=== PATIENT | female | born 1980 | race Caucasian/White ===

== ENCOUNTER → 2016-11-30 | Outpatient (CLI) | payer BC, OTHER | LOC: MW.CHOBGYN 11:05 | PROVIDERS: ATTEND Nurse Practitioner Women's Health | DX: N92.1 Excessive and frequent menstruation with irregular cycle (principal); Z97.5 Presence of (intrauterine) contraceptive device | CPT/HCPCS: 36415; 84443; 84703 ==

== ENCOUNTER → 2016-12-01 | Outpatient (CLI) | payer BC, OTHER ==
--- NOTE | 2016-12-03 14:59 | US ---
EXAM DATE: 12/01/16 PATIENT'S AGE: 36 Patient: FOX NATH Facility: [facility] Site . Site : 1980 Study: US-Pelvis [id number]/2/2017 5:39:18 PM Ordering Physician: Tricia Guerrero Final Report: HISTORY: Excessive and frequent menstruation with irregular cycle. IUD. Technique: Transvaginal pelvic ultrasound. Findings: The uterus measures 7.1 x 5.4 x 4.1 cm in size. There is an IUD present within the lower uterine segment and upper endocervical region. This represents a low position of the IUD. The endometrial echo complex is segmentally seen and where visualized measures 4 mm. No uterine mass appreciated. . The right ovary measures 2.3 x 2.3 x 3.8 cm in size. There are multiple right ovarian follicles. Blood flow is detected within the right ovary without findings of torsion. Left ovary measures 3 x 1.5 x 3.7 cm in size. Small follicles within the left ovary. Left ovary is difficult to evaluate given its deep location. It is difficult to confirm blood flow within the left ovary though this may be technical in nature. No significant pelvic free fluid seen. Impression: 1. Somewhat low position of the IUD which is present within the lower uterine segment and upper endocervical region. 2. The endometrial echo complex is segmentally seen and where visualized is of normal thickness. 3. No ovarian or adnexal mass. Dictated by Kana Lee MD @ Dec 02 2016 2:00PM Signed by: Kana Lee MD @12/02/2016 4:22:28 PM (Electronic Signature) Report Signed by Proxy. [facility] K[facility]TER[facility] CANCER CENTERBeatrice
== END ==
LOC: MW.US 15:23
PROVIDERS: ATTEND Nurse Practitioner Women's Health
DX: N92.1 Excessive and frequent menstruation with irregular cycle (principal); Z97.5 Presence of (intrauterine) contraceptive device
CPT/HCPCS: 76830; 76830-26

== ENCOUNTER 2017-02-16 04:58 | Emergency (ER) | payer BC ==
--- NOTE | 2017-02-16 05:24 | EDM.PDOC ---
ED HPI GENERAL MEDICAL PROBLEM - General Stated Complaint: MIGRAINE/HEAD PAIN Time Seen by Provider: 02/16/17 05:03 Source of Information: Reports: EMS History Limitations: Reports: No Limitations - History of Present Illness INITIAL COMMENTS - FREE TEXT/NARRATIVE: History of present illness: []Patient has a history of migraines and started having a typical migraine last night. He used her Imitrex out any relief. She is nauseated but has not had any vomiting. She'll suggest denies any fevers or chills. Review of systems: As per history of present illness and below otherwise all systems reviewed and negative. Past medical history: As per history of present illness and as reviewed below otherwise noncontributory. Surgical history: As per history of present illness and as reviewed below otherwise noncontributory. Social history: No reported history of drug or alcohol abuse. Family history: As per history of present illness and as reviewed below otherwise noncontributory. Physical exam: General: Well developed, well nourished in NAD HEENT: Atraumatic, normocephalic, pupils reactive, negative for conjunctival pallor or scleral icterus, mucous membranes moist, throat clear, neck supple, nontender, trachea midline. Lungs: Clear to auscultation, breath sounds equal bilaterally, chest nontender. Heart: S1S2, regular, negative for clicks, rubs, or JVD. Abdomen: Soft, nondistended, nontender. Negative for masses or hepatosplenomegaly. Negative for costovertebral tenderness. Pelvis: Stable nontender. Genitourinary: Deferred. Rectal: Deferred. Extremities: Atraumatic, negative for cords or calf pain. Neurovascular unremarkable. Neuro: Awake, alert, oriented. Cranial nerves II through XII unremarkable. Cerebellum unremarkable. Motor and sensory unremarkable throughout. Exam nonfocal. Diagnostics: [] Therapeutics: []Toradol Zofran given with complete alleviation of her headache Impression: []Typical migraine headache Plan: []Imitrex refill use as directed follow-up with PMD return if symptoms worsen Definitive disposition and diagnosis as appropriate pending reevaluation and review of above. Left Head Pain Score (Numeric/FACES): 9 - Related Data Allergies Allergy/AdvReac Type Severity Reaction Status Date / Time No Known Allergies Allergy Verified 02/16/17 05:20 Home Meds: Home Meds SUMAtriptan [Imitrex] 50 mg PO DAILY PRN 06/09/16 [History] valACYclovir HCl [Valtrex] 500 mg PO DAILY 06/09/16 [History] SUMAtriptan Succinate [Imitrex] 100 mg PO ASDIRECTED PRN #8 tablet 02/16/17 [Rx] Past Medical History [employer] History: Reports: Neurological History: Reports: Migraines Social & Family History - Family History Family Medical History: Noncontributory - Tobacco Use Smoking Status *Q: Never Smoker Second Hand Smoke Exposure: No - Caffeine Use Caffeine Use: Reports: Coffee - Recreational Drug Use Recreational Drug Use: No Review of Systems - Review of Systems Review Of Systems: See Below (See history of present illness) ED EXAM, GENERAL - Physical Exam Exam: See Below (See history of present illness) Course - Vital Signs Last Recorded V/S: Last Vital Signs Temp 36.3 C 02/16/17 05:21 Pulse 104 H 02/16/17 05:21 Resp 17 02/16/17 05:21 BP 133/87 02/16/17 05:21 Pulse Ox 96 02/16/17 05:21 - Orders/Labs/Meds Meds: Medications Discontinued Medications Generic Name Dose Route Start Last Admin Trade Name Freq PRN Reason Stop Dose Admin Ketorolac Tromethamine 60 mg 02/16/17 05:25 02/16/17 05:36 Toradol IM 02/16/17 05:26 60 mg ONETIME ONE Administration Ondansetron HCl 4 mg 02/16/17 05:26 02/16/17 05:35 Zofran Odt PO 02/16/17 05:27 4 mg ONETIME ONE Administration Departure - Departure Time of Disposition: 06:34 Disposition: Home, Self-Care 01 Condition: Good Clinical Impression: Migraine Qualifiers: Migraine type: unspecified Status migrainosus presence: without status migrainosus Intractability: not intractable Qualified Code(s): G43.909 - Migraine, unspecified, not intractable, without status migrainosus - Discharge Information Prescriptions: SUMAtriptan Succinate [Imitrex] 100 mg PO ASDIRECTED PRN #8 tablet PRN Reason: Pain Additional Instructions: The following information is given to patients seen in the emergency department who are being discharged to home. This information is to outline your options for follow-up care. We provide all patients seen in our emergency department with a follow-up referral. The need for follow-up, as well as the timing and circumstances, are variable depending upon the specifics of your emergency department visit. If you don't have a primary care physician on staff, we will provide you with a referral. We always advise you to contact your personal physician following an emergency department visit to inform them of the circumstance of the visit and for follow-up with them and/or the need for any referrals to a consulting specialist. The emergency department will also refer you to a specialist when appropriate. This referral assures that you have the opportunity for follow-up care with a specialist. All of these measure are taken in an effort to provide you with optimal care, which includes your follow-up. Under all circumstances we always encourage you to contact your private physician who remains a resource for coordinating your care. When calling for follow-up care, please make the office aware that this follow-up is from your recent emergency room visit. If for any reason you are refused follow-up, please contact the [facility] at and asked to speak to the emergency department charge nurse. Use Imitrex as directed [facility] [address] [place] [id number]
[2017-02-16] MEDS ORDERED: Ketorolac 60 MG/2 ML SDV IM ONE (05:25)
[2017-02-16] MEDS ORDERED: Ondansetron 4 MG Tab.DIS PO ONE (05:26)
[2017-02-16 07:02] VITALS: BP 120/80
== END 2017-02-16 07:03 | disposition home or self-care (01) ==
LOC: MW.ED 04:58
DX: G43.909 Migraine, unspecified, not intractable, without status migrainosus (principal); Z79.899 Other long term (current) drug therapy
CPT/HCPCS: 96372; 99283; A9270; J1885

== ENCOUNTER 2018-04-16 03:38 | Emergency (ER) | payer BC ==
--- NOTE | 2018-04-16 03:50 | EDM.PDOC ---
ED HPI GENERAL MEDICAL PROBLEM - General Chief Complaint: Headache Stated Complaint: MIGRAINE Time Seen by Provider: 04/16/18 03:42 - History of Present Illness INITIAL COMMENTS - FREE TEXT/NARRATIVE: HISTORY AND PHYSICAL: History of present illness: The patient is a 37-year-old female who has a long-standing history of migraine headaches and has been seen here in the emergency department for same and presents this morning with complaints of a migraine that has been on and off over the last several days and she has been treating at home with her Imitrex. She took her last dose of Imitrex yesterday and feels that it's worsened and she has no more medication so she is here for evaluation. The patient says that she gets migraines usually around her menstrual cycle and she is currently menstruating. She has no recent trauma to her head and neck and her headache is located in the frontal area of her head typical of her usual migraines. There is some photophobia associated with it and nausea but no vomiting or diarrhea. She's had no fevers chills upper respiratory symptoms chest pain or shortness of breath. Nothing new or different about her headaches with location character or timing and she also says that as the eugenio starts she has more frequency of headaches. The patient was last seen here January 2017 and says that the cocktail of medications she was given alleviated her headache significantly and she would like similar today. Review of systems: As per history of present illness and below otherwise all systems reviewed and negative. Past medical history: As per history of present illness and as reviewed below otherwise noncontributory. Surgical history: As per history of present illness and as reviewed below otherwise noncontributory. Social history: No reported history of drug or alcohol abuse. Family history: As per history of present illness and as reviewed below otherwise noncontributory. Physical exam: General: Well developed well-nourished female who is nontoxic and ambulatory into the ED and vital signs are noted by me HEENT: Atraumatic, normocephalic, pupils reactive and the patient does exhibit photophobia, negative for conjunctival pallor or scleral icterus, mucous membranes moist, throat clear, neck supple, nontender, trachea midline. There is no cervical adenopathy or nuchal rigidity Lungs: Clear to auscultation, breath sounds equal bilaterally, chest nontender. Heart: S1S2, regular rate and rhythm no overt murmurs Abdomen: Soft, nondistended, nontender. NABS Pelvis: Deferred Genitourinary: Deferred. Rectal: Deferred. Extremities: Atraumatic, full range of motion without defects or deficits Neurovascular unremarkable. Neuro: Awake, alert, oriented. Cranial nerves II through XII unremarkable. Cerebellum unremarkable. Motor and sensory unremarkable throughout. Exam nonfocal. Diagnostics: Therapeutics: IV fluids Toradol Zofran Solu-Medrol Ativan Patient states that she can get a refill for her Imitrex tomorrow morning and does not need a prescription from me. 0502:Patient is feeling better; we will plan discharge Impression: Migraine headache with history of same Definitive disposition and diagnosis as appropriate pending reevaluation and review of above. headache Pain Score (Numeric/FACES): 8 - Related Data Allergies Allergy/AdvReac Type Severity Reaction Status Date / Time Latex, Natural Rubber Allergy Rash Verified 02/16/17 06:35 antibiotic Allergy Hives Uncoded 04/16/18 03:51 Home Meds: Home Meds valACYclovir HCl [Valtrex] 500 mg PO DAILY 06/09/16 [History] SUMAtriptan Succinate [Imitrex] 100 mg PO ASDIRECTED PRN 04/16/18 [History] metFORMIN [Glucophage XR] 500 mg PO TID 04/16/18 [History] Past Medical History HEENT History: Reports: None Cardiovascular History: Reports: None Respiratory History: Reports: None Gastrointestinal History: Reports: None Genitourinary History: Reports: None 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: Musculoskeletal History: Reports: None Neurological History: Reports: Migraines Psychiatric History: Reports: None Endocrine/Metabolic History: Reports: None Hematologic History: Reports: None Immunologic History: Reports: None Dermatologic History: Reports: Other (See Below) Other Dermatologic History: Tumor removal to leg & jaw - Infectious Disease History Infectious Disease History: Reports: Chicken Pox - Past Surgical History Head Surgeries/Procedures: Reports: None GI Surgical History: Reports: Other (See Below) Other GI Surgeries/Procedures: Gastric Bypass Social & Family History - Family History Family Medical History: Noncontributory - Caffeine Use Caffeine Use: Reports: Coffee ED ROS GENERAL - Review of Systems Review Of Systems: ROS reveals no pertinent complaints other than HPI. ED EXAM, GENERAL - Physical Exam Exam: See Below (see dictation) Course - Vital Signs Last Recorded V/S: Last Vital Signs Temp 35.6 C 04/16/18 03:44 Pulse 77 04/16/18 03:44 Resp 18 04/16/18 03:44 BP 148/99 H 04/16/18 03:44 Pulse Ox 98 04/16/18 03:44 - Orders/Labs/Meds Orders: Active Orders 24 hr Category Date Time Status Sodium Chloride 0.9% [Saline Flush] Med 04/16/18 03:59 Active 10 ml FLUSH ASDIRECTED PRN Sodium Chloride 0.9% [Saline Flush] Med 04/16/18 03:59 Active 2.5 ml FLUSH ASDIRECTED PRN Saline Lock Insert [OM.PC] Stat Oth 04/16/18 03:59 Ordered Medication Orders Sodium Chloride (Saline Flush) 10 ml FLUSH ASDIRECTED PRN PRN Reason: Keep Vein Open Sodium Chloride (Saline Flush) 2.5 ml FLUSH ASDIRECTED PRN PRN Reason: Keep Vein Open Meds: Medications Generic Name Dose Route Start Last Admin Trade Name Freq PRN Reason Stop Dose Admin Sodium Chloride 10 ml 04/16/18 03:59 Saline Flush FLUSH ASDIRECTED PRN Keep Vein Open Sodium Chloride 2.5 ml 04/16/18 03:59 Saline Flush FLUSH ASDIRECTED PRN Keep Vein Open Discontinued Medications Generic Name Dose Route Start Last Admin Trade Name Freq PRN Reason Stop Dose Admin Sodium Chloride 1,000 mls @ 999 mls/hr 04/16/18 03:59 04/16/18 04:14 Normal Saline IV 04/16/18 04:59 999 mls/hr STAT ONE Administration Ketorolac Tromethamine 30 mg 04/16/18 03:59 04/16/18 04:14 Toradol IVPUSH 04/16/18 04:00 30 mg ONETIME ONE Administration Lorazepam 1 mg 04/16/18 03:59 04/16/18 04:14 Ativan IVPUSH 04/16/18 04:00 1 mg ONETIME ONE Administration Methylprednisolone Sodium Succinate 125 mg 04/16/18 03:59 04/16/18 04:15 Solu-Medrol IVPUSH 04/16/18 04:00 125 mg ONETIME ONE Administration Ondansetron HCl 4 mg 04/16/18 03:59 04/16/18 04:15 Zofran IVPUSH 04/16/18 04:00 4 mg ONETIME ONE Administration Departure - Departure Time of Disposition: 05:03 Disposition: Home, Self-Care 01 Condition: Good Clinical Impression: Migraine - Discharge Information Instructions: Migraine Headache, [id number] Referrals: Nestor Amos MD [Primary Care Provider] - Forms: ED Department Discharge Additional Instructions: The following information is given to patients seen in the emergency department who are being discharged to home. This information is to outline your options for follow-up care. We provide all patients seen in our emergency department with a follow-up referral. The need for follow-up, as well as the timing and circumstances, are variable depending upon the specifics of your emergency department visit. If you don't have a primary care physician on staff, we will provide you with a referral. We always advise you to contact your personal physician following an emergency department visit to inform them of the circumstance of the visit and for follow-up with them and/or the need for any referrals to a consulting specialist. The emergency department will also refer you to a specialist when appropriate. This referral assures that you have the opportunity for followup care with a specialist. All of these measure are taken in an effort to provide you with optimal care, which includes your followup. Under all circumstances we always encourage you to contact your private physician who remains a resource for coordinating your care. When calling for followup care, please make the office aware that this follow-up is from your recent emergency room visit. If for any reason you are refused follow-up, please contact the [facility] emergency department at and ask to speak to the emergency department charge nurse. [address] [place] [address] Push hydration and rest. Please refill your prescription for Imitrex of the you have that is a resource to use at home. Please contact her provider at [facility] and schedule follow-up as needed and return to ER as needed and as discussed - My Orders Last 24 Hours: My Active Orders 04/16/18 03:59 Sodium Chloride 0.9% [Saline Flush] 10 ml FLUSH ASDIRECTED PRN Sodium Chloride 0.9% [Saline Flush] 2.5 ml FLUSH ASDIRECTED PRN Saline Lock Insert [OM.PC] Stat - Assessment/Plan Last 24 Hours: My Active Orders 04/16/18 03:59 Sodium Chloride 0.9% [Saline Flush] 10 ml FLUSH ASDIRECTED PRN Sodium Chloride 0.9% [Saline Flush] 2.5 ml FLUSH ASDIRECTED PRN Saline Lock Insert [OM.PC] Stat
[2018-04-16] MEDS ORDERED: Sodium Chloride 0.9% 1,000 ML IV ONE (03:59)
[2018-04-16] MEDS ORDERED: Sodium Chloride 0.9% 2.5 ML Syringe FLUSH PRN (03:59)
[2018-04-16] MEDS ORDERED: Ketorolac 30 MG/ML SDV IVPUSH ONE (03:59)
[2018-04-16] MEDS ORDERED: LORazepam 2 MG/ML SDV IVPUSH ONE (03:59)
[2018-04-16] MEDS ORDERED: Ondansetron 4 MG/2 ML SDV IVPUSH ONE (03:59)
[2018-04-16] MEDS ORDERED: Sodium Chloride 0.9% 10 ML Syringe FLUSH PRN (03:59)
[2018-04-16] MEDS ORDERED: methylPREDNISolone Sodium Succinate 125 MG/2 ML SDV IVPUSH ONE (03:59)
[2018-04-16 05:31] VITALS: BP 120/83
== END 2018-04-16 05:15 | disposition home or self-care (01) ==
LOC: MW.ED 03:38
DX: G43.909 Migraine, unspecified, not intractable, without status migrainosus (principal); Z91.040 Latex allergy status; Z88.1 Allergy status to other antibiotic agents; Z79.899 Other long term (current) drug therapy; Z79.84 Long term (current) use of oral hypoglycemic drugs
CPT/HCPCS: 96361; 96374; 96375; 99283; J1885; J2060; J2405; J2930; J7040

== ENCOUNTER 2018-04-16 16:26 | Emergency (ER) | payer BC ==
--- NOTE | 2018-04-16 16:36 | EDM.PDOC ---
ED HPI GENERAL MEDICAL PROBLEM - General Chief Complaint: Headache Stated Complaint: PT HAS MIGRAINE Time Seen by Provider: 04/16/18 16:36 Source of Information: Reports: Patient History Limitations: Reports: No Limitations - History of Present Illness INITIAL COMMENTS - FREE TEXT/NARRATIVE: HISTORY AND PHYSICAL: History of present illness: Patient is a 37-year-old female who presents to the emergency room today with complaints of a migraine headache 2-3 days. Take his frontal behind the eyes. Does have some associated nausea, light and noise sensitivity. She was seen early this morning at 3 AM through our emergency room for this headache. At that time she states her Imitrex had ran out and had taken her last tablet on . She received IV Zofran, Toradol, slight Medrol and Ativan. She states that her headache was not relieved at this time but did go home and was able to sleep. This afternoon she was unable to tolerate the discomfort and return to the emergency room. She states this headache is not abnormal for her. She denies any head injury, trauma or falls. She denies any fever, chills, chest pain, shortness of breath or cough. Denies any abdominal pain, vomiting, diarrhea, constipation or dysuria. Denies any visual changes, dizziness, syncope or near syncope. Review of systems: As per history of present illness and below otherwise all systems reviewed and negative. Past medical history: As per history of present illness and as reviewed below otherwise noncontributory. Surgical history: As per history of present illness and as reviewed below otherwise noncontributory. Social history: No reported history of drug or alcohol abuse. Family history: As per history of present illness and as reviewed below otherwise noncontributory. Physical exam: General: Well-developed and well-nourished 37-year-old female. Alert and oriented. Nontoxic appearing and in no acute distress. HEENT: Atraumatic, normocephalic, pupils equal and reactive bilaterally, negative for conjunctival pallor or scleral icterus, mucous membranes moist, throat clear, neck supple, nontender, trachea midline. No drooling or trismus noted. No meningeal signs Lungs: Clear to auscultation, breath sounds equal bilaterally, chest nontender. Heart: S1S2, regular rate and rhythm without overt murmur Abdomen: Soft, nondistended, nontender. Negative for masses or hepatosplenomegaly. Negative for costovertebral tenderness. Pelvis: Stable nontender. Genitourinary: Deferred. Rectal: Deferred. Skin: Intact, warm, dry. No lesions or rashes noted. Extremities: Atraumatic, negative for cords or calf pain. Neurovascular unremarkable. Neuro: Awake, alert, oriented. Cranial nerves II through XII unremarkable. Cerebellum unremarkable. Motor and sensory unremarkable throughout. Exam nonfocal. Notes: I did offer the patient to do routine lab work and a head CT as this is her second visit within 24 hours. She declines, stating that this headache is normal for her and is not concerned of any reason behind the headache other than her chronic history of migraines. She does see Dr. Amos at [facility] who manages her medications and migraine. She received IV fluids and medication. She states her pain is a 1 out of 10 at this time. She would like to be discharged to home. Mother is driving. She denies any further questions or concerns at this time. Will follow up with Dr. Amos next week. Diagnostics: Declines Therapeutics: IV fluids, zofran, toradol, reglan, benadryl Prescription: None Impression: Migraine Headache Plan: 1. Please take the remainder of the day to rest in a dark and quiet room. The medications you received cause sedation, so do not drive. 2. Tylenol and/or ibuprofen as needed for pain management. You may use her Imitrex as directed. 3. Please follow-up with your primary caregiver in the next 1-2 days. Return to the ED as needed and as discussed. Definitive disposition and diagnosis as appropriate pending reevaluation and review of above. Duration: Day(s): Location: Reports: Head migraine headache Pain Score (Numeric/FACES): 7 - Related Data Allergies Allergy/AdvReac Type Severity Reaction Status Date / Time Latex, Natural Rubber Allergy Rash Verified 04/16/18 16:43 antibiotic Allergy Hives Uncoded 04/16/18 03:51 Home Meds: Home Meds valACYclovir HCl [Valtrex] 500 mg PO DAILY 06/09/16 [History] SUMAtriptan Succinate [Imitrex] 100 mg PO ASDIRECTED PRN 04/16/18 [History] metFORMIN [Glucophage XR] 500 mg PO TID 04/16/18 [History] Past Medical History HEENT History: Reports: None Other HEENT History: wears glasses Cardiovascular History: Reports: None Respiratory History: Reports: None Gastrointestinal History: Reports: None Genitourinary History: Reports: None AMMUNITION SPECIALIST History: Reports: Musculoskeletal History: Reports: None Neurological History: Reports: Migraines Psychiatric History: Reports: None Endocrine/Metabolic History: Reports: None Hematologic History: Reports: None Immunologic History: Reports: None Dermatologic History: Reports: Other (See Below) Other Dermatologic History: Tumor removal to leg & jaw - Infectious Disease History Infectious Disease History: Reports: Chicken Pox - Past Surgical History Head Surgeries/Procedures: Reports: None GI Surgical History: Reports: Other (See Below) Other GI Surgeries/Procedures: Gastric Bypass Social & Family History - Family History Family Medical History: Noncontributory - Caffeine Use Caffeine Use: Reports: Coffee ED ROS GENERAL - Review of Systems Review Of Systems: ROS reveals no pertinent complaints other than HPI. - Physical Exam Exam: See Below (See dictation) Course - Vital Signs Last Recorded V/S: Last Vital Signs Temp 96.8 F 04/16/18 16:43 Pulse 71 04/16/18 16:43 Resp 18 04/16/18 16:43 BP 146/93 H 04/16/18 16:43 Pulse Ox 99 04/16/18 16:47 - Orders/Labs/Meds Orders: Active Orders 24 hr Category Date Time Status Oxygen Therapy, ED [RC] ASDIRECTED Care 04/16/18 16:47 Active Sodium Chloride 0.9% [Normal Saline] 500 ml Med 04/16/18 17:00 Active IV STAT Medication Orders Sodium Chloride (Normal Saline) 500 mls @ 999 mls/hr IV STAT LEW Last Admin: 04/16/18 17:03 Dose: 999 mls/hr Meds: Medications Generic Name Dose Route Start Last Admin Trade Name Freq PRN Reason Stop Dose Admin Sodium Chloride 500 mls @ 999 mls/hr 04/16/18 17:00 04/16/18 17:03 Normal Saline IV 999 mls/hr STAT LEW Administration Discontinued Medications Generic Name Dose Route Start Last Admin Trade Name Freq PRN Reason Stop Dose Admin Diphenhydramine HCl 50 mg 04/16/18 16:47 04/16/18 17:04 Benadryl IVPUSH 09/15/18 16:48 50 mg ONETIME ONE Administration Ketorolac Tromethamine 30 mg 04/16/18 16:47 04/16/18 17:10 Toradol IVPUSH 04/16/18 16:48 30 mg ONETIME ONE Administration Metoclopramide HCl 10 mg 04/16/18 16:47 04/16/18 17:11 Reglan IV 04/16/18 16:48 10 mg ONETIME ONE Administration Ondansetron HCl 4 mg 04/16/18 16:47 04/16/18 17:06 Zofran IVPUSH 04/16/18 16:48 4 mg ONETIME ONE Administration Departure - Departure Time of Disposition: 17:41 Disposition: Home, Self-Care 01 Condition: Good Clinical Impression: Migraine - Discharge Information Instructions: Migraine Headache, [id number] Referrals: PCP,None [Primary Care Provider] - Forms: ED Department Discharge Additional Instructions: The following information is given to patients seen in the emergency department who are being discharged to home. This information is to outline your options for follow-up care. We provide all patients seen in our emergency department with a follow-up referral. The need for follow-up, as well as the timing and circumstances, are variable depending upon the specifics of your emergency department visit. If you don't have a primary care physician on staff, we will provide you with a referral. We always advise you to contact your personal physician following an emergency department visit to inform them of the circumstance of the visit and for follow-up with them and/or the need for any referrals to a consulting specialist. The emergency department will also refer you to a specialist when appropriate. This referral assures that you have the opportunity for follow-up care with a specialist. All of these measure are taken in an effort to provide you with optimal care, which includes your follow-up. Under all circumstances we always encourage you to contact your private physician who remains a resource for coordinating your care. When calling for follow-up care, please make the office aware that this follow-up is from your recent emergency room visit. If for any reason you are refused follow-up, please contact the [facility] Emergency Department at and asked to speak to the emergency department charge nurse. [facility] [address] [place] [id number] [facility] [address] [place] [address] 1. Please take the remainder of the day to rest in a dark and quiet room. The medications you received cause sedation, so do not drive. 2. Tylenol and/or ibuprofen as needed for pain management. You may use your Imitrex as directed. 3. Please follow-up with your primary caregiver in the next 1-2 days. Return to the ED as needed and as discussed. - My Orders Last 24 Hours: My Active Orders 04/16/18 16:47 Oxygen Therapy, ED [RC] ASDIRECTED 04/16/18 17:00 Sodium Chloride 0.9% [Normal Saline] 500 ml IV STAT - Assessment/Plan Last 24 Hours: My Active Orders 04/16/18 16:47 Oxygen Therapy, ED [RC] ASDIRECTED 04/16/18 17:00 Sodium Chloride 0.9% [Normal Saline] 500 ml IV STAT
[2018-04-16] MEDS ORDERED: Metoclopramide 10 MG/2 ML SDV IV ONE (16:47)
[2018-04-16] MEDS ORDERED: diphenhydrAMINE 50 MG/ML SDV IVPUSH ONE (16:47)
[2018-04-16] MEDS ORDERED: Ondansetron 4 MG/2 ML SDV IVPUSH ONE (16:47)
[2018-04-16] MEDS ORDERED: Ketorolac 30 MG/ML SDV IVPUSH ONE (16:47)
[2018-04-16] MEDS ORDERED: Sodium Chloride 0.9% 500 ML IV SCH (17:00)
[2018-04-16 18:23] VITALS: BP 136/86
== END 2018-04-16 17:45 | disposition home or self-care (01) ==
LOC: MW.ED 16:26
DX: G43.909 Migraine, unspecified, not intractable, without status migrainosus (principal); Z91.040 Latex allergy status; Z88.1 Allergy status to other antibiotic agents; Z79.899 Other long term (current) drug therapy; Z79.84 Long term (current) use of oral hypoglycemic drugs
CPT/HCPCS: 96361; 96374; 96375; 99284; J1200; J1885; J2405; J2765; J7040

== ENCOUNTER 2018-11-28 13:26 | Emergency (ER) | payer BC ==
[2018-11-28] MEDS ORDERED: Ondansetron 4 MG/2 ML SDV IVPUSH ONE (13:50)
[2018-11-28] MEDS ORDERED: Metoclopramide 10 MG/2 ML SDV IV ONE (13:50)
[2018-11-28] MEDS ORDERED: diphenhydrAMINE 50 MG/ML SDV IVPUSH ONE (13:50)
[2018-11-28] MEDS ORDERED: Ketorolac 30 MG/ML SDV IVPUSH ONE (13:50)
[2018-11-28] MEDS ORDERED: Sodium Chloride 0.9% 1,000 ML IV ONE (13:50)
--- NOTE | 2018-11-28 14:05 | EDM.PDOC ---
ED HPI GENERAL MEDICAL PROBLEM - General Chief Complaint: Headache Stated Complaint: MIGRAINE Time Seen by Provider: 11/28/18 13:50 Source of Information: Reports: Patient History Limitations: Reports: No Limitations - History of Present Illness INITIAL COMMENTS - FREE TEXT/NARRATIVE: HISTORY AND PHYSICAL: History of present illness: Patient is a 38-year-old female who presents to the ED today with concern for a migraine headache. Patient states she has a history of migraines and has taken 3 Imitrex today without relief of her symptoms. Patient states her migraine started this morning and she rates it a 9 out of 10. Patient states she is also taking ibuprofen without relief of symptoms. Patient states she does feel nauseous but this is typical for her migraine headache symptoms. Patient denies any new symptoms to her migraine. Patient denies fever, chills, chest pain, shortness of breath, or cough. Denies neck stiff ness, change in vision, syncope, or near syncope. Denies vomiting, abdominal pain, diarrhea, constipation, or dysuria. Has not noted any blood in urine or stool. Patient has been eating and drinking appropriately. Review of systems: As per history of present illness and below otherwise all systems reviewed and negative. Past medical history: As per history of present illness and as reviewed below otherwise noncontributory. Surgical history: As per history of present illness and as reviewed below otherwise noncontributory. Social history: See social history for further information Family history: As per history of present illness and as reviewed below otherwise noncontributory. Physical exam: General: Patient is alert, oriented, and in no acute distress. Patient laying comfortably on exam table. HEENT: Atraumatic, normocephalic, pupils equal and reactive bilaterally, negative for conjunctival pallor or scleral icterus, mucous membranes moist, TMs normal bilaterally, throat clear, neck supple, nontender, trachea midline. No drooling or trismus noted. No meningeal signs. No hot potato voice noted. Lungs: Clear to auscultation, breath sounds equal bilaterally, chest nontender. Heart: S1S2, regular rate and rhythm without overt murmur Abdomen: Soft, nondistended, nontender. Negative for masses or hepatosplenomegaly. Negative for costovertebral tenderness. Pelvis: Stable nontender. Genitourinary: Deferred. Rectal: Deferred. Skin: Intact, warm, dry. No lesions or rashes noted. Extremities: Atraumatic, negative for cords or calf pain. Neurovascular unremarkable. Neuro: Awake, alert, oriented. Cranial nerves II through XII unremarkable. Cerebellum unremarkable. Motor and sensory unremarkable throughout. Exam nonfocal. Notes: Discussed the importance for follow-up with a primary care provider. Voices understanding and is agreeable to plan of care. Denies any further questions or concerns at this time. Diagnostics: None Therapeutics: Saline, Toradol, Zofran, Benadryl, Reglan Prescription: None Impression: Migraine headache h/o of migraine headache Plan: 1. You can alternate ibuprofen or Tylenol as directed for pain and discomfort. 2. Follow-up with her primary care provider as discussed. 3. Return to the ED as needed and as discussed. Definitive disposition and diagnosis as appropriate pending reevaluation and review of above. Headache Pain Score (Numeric/FACES): 7 - Related Data Allergies Allergy/AdvReac Type Severity Reaction Status Date / Time amoxicillin [From Augmentin] Allergy Rash Verified 05/15/18 11:37 clavulanic acid Allergy Rash Verified 05/15/18 11:37 [From Augmentin] Latex, Natural Rubber Allergy Rash Verified 05/15/18 11:37 Home Meds: Home Meds valACYclovir HCl [Valtrex] 500 mg PO DAILY 06/09/16 [History] SUMAtriptan Succinate [Imitrex] 100 mg PO ASDIRECTED PRN 04/16/18 [History] metFORMIN [Glucophage XR] 500 mg PO TID 04/16/18 [History] Past Medical History HEENT History: Reports: None Other HEENT History: wears glasses Cardiovascular History: Reports: None Respiratory History: Reports: None Gastrointestinal History: Reports: None Genitourinary History: Reports: None 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: Musculoskeletal History: Reports: None Neurological History: Reports: Migraines Psychiatric History: Reports: None Endocrine/Metabolic History: Reports: None Hematologic History: Reports: None Immunologic History: Reports: None Oncologic (Cancer) History: Reports: None Dermatologic History: Reports: Other (See Below) Other Dermatologic History: Tumor removal to leg & jaw - Infectious Disease History Infectious Disease History: Reports: Chicken Pox - Past Surgical History Head Surgeries/Procedures: Reports: None GI Surgical History: Reports: Other (See Below) Other GI Surgeries/Procedures: Gastric Bypass Oncologic Surgical History: Reports: None Social & Family History - Family History Family Medical History: Noncontributory - Tobacco Use Smoking Status *Q: Never Smoker - Caffeine Use Caffeine Use: Reports: Coffee - Recreational Drug Use Recreational Drug Use: No ED ROS GENERAL - Review of Systems Review Of Systems: ROS reveals no pertinent complaints other than HPI. - Physical Exam Exam: See Below (See dictation) Course - Vital Signs Last Recorded V/S: Last Vital Signs Temp 35.7 C 11/28/18 13:35 Pulse 89 11/28/18 13:35 Resp 16 11/28/18 13:35 BP 150/99 H 11/28/18 13:35 Pulse Ox 98 11/28/18 13:35 - Orders/Labs/Meds Orders: Active Orders 24 hr Category Date Time Status Sodium Chloride 0.9% [Normal Saline] 1,000 ml Med 11/28/18 13:50 Active IV STAT Medication Orders Sodium Chloride (Normal Saline) 1,000 mls @ 999 mls/hr IV STAT ONE Stop: 11/28/18 14:50 Meds: Medications Generic Name Dose Route Start Last Admin Trade Name Freq PRN Reason Stop Dose Admin Sodium Chloride 1,000 mls @ 999 mls/hr 11/28/18 13:50 Normal Saline IV 11/28/18 14:50 STAT ONE Discontinued Medications Generic Name Dose Route Start Last Admin Trade Name Freq PRN Reason Stop Dose Admin Diphenhydramine HCl 50 mg 11/28/18 13:50 Benadryl IVPUSH 11/28/18 13:51 ONETIME ONE Ketorolac Tromethamine 30 mg 11/28/18 13:50 Toradol IVPUSH 11/28/18 13:51 ONETIME ONE Metoclopramide HCl 10 mg 11/28/18 13:50 Reglan IV 11/28/18 13:51 ONETIME ONE Ondansetron HCl 4 mg 11/28/18 13:50 Zofran IVPUSH 11/28/18 13:51 ONETIME ONE Departure - Departure Time of Disposition: 14:04 Disposition: Home, Self-Care 01 Clinical Impression: History of migraine Migraine headache Qualifiers: Migraine type: unspecified Status migrainosus presence: without status migrainosus Intractability: not intractable Qualified Code(s): G43.909 - Migraine, unspecified, not intractable, without status migrainosus - Discharge Information Instructions: Recurrent Migraine Headache, [id number] Referrals: PCP,None [Primary Care Provider] - Additional Instructions: The following information is given to patients seen in the emergency department who are being discharged to home. This information is to outline your options for follow-up care. We provide all patients seen in our emergency department with a follow-up referral. The need for follow-up, as well as the timing and circumstances, are variable depending upon the specifics of your emergency department visit. If you don't have a primary care physician on staff, we will provide you with a referral. We always advise you to contact your personal physician following an emergency department visit to inform them of the circumstance of the visit and for follow-up with them and/or the need for any referrals to a consulting specialist. The emergency department will also refer you to a specialist when appropriate. This referral assures that you have the opportunity for follow-up care with a specialist. All of these measure are taken in an effort to provide you with optimal care, which includes your follow-up. Under all circumstances we always encourage you to contact your private physician who remains a resource for coordinating your care. When calling for follow-up care, please make the office aware that this follow-up is from your recent emergency room visit. If for any reason you are refused follow-up, please contact the [facility] Emergency Department at and asked to speak to the emergency department charge nurse. [facility] [address] [place] [id number] [facility] [address] [place] [id number] 1. You can alternate ibuprofen or Tylenol as directed for pain and discomfort. 2. Follow-up with her primary care provider as discussed. 3. Return to the ED as needed and as discussed. - My Orders Last 24 Hours: My Active Orders 11/28/18 13:50 Sodium Chloride 0.9% [Normal Saline] 1,000 ml IV STAT - Assessment/Plan Last 24 Hours: My Active Orders 11/28/18 13:50 Sodium Chloride 0.9% [Normal Saline] 1,000 ml IV STAT
[2018-11-28 15:50] VITALS: BP 118/76
== END 2018-11-28 15:18 | disposition home or self-care (01) ==
LOC: MW.ED 13:26
DX: G43.909 Migraine, unspecified, not intractable, without status migrainosus (principal); Z88.1 Allergy status to other antibiotic agents; Z91.040 Latex allergy status; Z79.899 Other long term (current) drug therapy
CPT/HCPCS: 96361; 96374; 96375; 99283; J1200; J1885; J2405; J2765; J7040

== ENCOUNTER 2019-04-24 15:49 | Emergency (ER) | payer BC ==
[2019-04-24] MEDS ORDERED: diphenhydrAMINE 50 MG/ML SDV IVPUSH ONE (16:10)
[2019-04-24] MEDS ORDERED: Sodium Chloride 0.9% 1,000 ML IV ONE (16:10)
[2019-04-24] MEDS ORDERED: Sodium Chloride 0.9% 10 ML Syringe FLUSH PRN ×2 (16:10)
[2019-04-24] MEDS ORDERED: Ketorolac 30 MG/ML SDV IVPUSH ONE (16:10)
[2019-04-24] MEDS ORDERED: Sodium Chloride 0.9% 2.5 ML Syringe FLUSH PRN ×2 (16:10)
[2019-04-24] MEDS ORDERED: Ondansetron 4 MG/2 ML SDV IVPUSH ONE (16:10)
[2019-04-24] MEDS ORDERED: Metoclopramide 10 MG/2 ML SDV IVPUSH ONE (16:10)
--- NOTE | 2019-04-24 16:12 | EDM.PDOC ---
ED HPI GENERAL MEDICAL PROBLEM - General Chief Complaint: Headache Stated Complaint: MIGRAINE Time Seen by Provider: 04/24/19 16:10 Source of Information: Reports: Patient History Limitations: Reports: No Limitations - History of Present Illness INITIAL COMMENTS - FREE TEXT/NARRATIVE: HISTORY AND PHYSICAL: History of present illness: Patient is a 38-year-old female presents to the ED with complaint of migraine. Patient has a history of migraines, states she took 3 sumatriptan without relief. She states it started about 11 this morning. Pain is on the left side of the head with photophobia, phonophobia, and nausea. She states this headache is not new or different than her usual headaches. She denies fevers, vomiting, head injury. Review of systems: As per history of present illness and below otherwise all systems reviewed and negative. Past medical history: As per history of present illness and as reviewed below otherwise noncontributory. Surgical history: As per history of present illness and as reviewed below otherwise noncontributory. Social history: No reported history of drug or alcohol abuse. Family history: As per history of present illness and as reviewed below otherwise noncontributory. Physical exam: General: Patient sitting comfortably in no acute distress and nontoxic appearing HEENT: Atraumatic, normocephalic, pupils reactive, negative for conjunctival pallor or scleral icterus, mucous membranes moist, throat clear, neck supple, nontender, trachea midline. No meningeal signs. Lungs: Clear to auscultation, breath sounds equal bilaterally, chest nontender. Heart: S1S2, regular, negative for clicks, rubs, or overt murmur. Abdomen: Soft, nondistended, nontender. Negative for masses or hepatosplenomegaly. Negative for costovertebral tenderness. No rigidity, rebound , guarding. Pelvis: Stable nontender. Genitourinary: Deferred. Rectal: Deferred. Extremities: Atraumatic, negative for cords or calf pain. Neurovascular unremarkable. Neuro: Awake, alert, oriented. Cranial nerves II through XII unremarkable. Cerebellum unremarkable. Motor and sensory unremarkable throughout. Exam nonfocal. Notes: Patient reports improvement in headache with therapeutics Diagnostics: None Therapeutics: 1L NS IV 4mg Zofran IV 10mg Reglan IV 30mg Toradol IV Prescriptions: Impression: Headache Plan: Follow up with primary care provider Return to ED as needed as discussed Definitive disposition and diagnosis as appropriate pending reevaluation and review of above. Headache Pain Score (Numeric/FACES): 6 - Related Data Allergies Allergy/AdvReac Type Severity Reaction Status Date / Time amoxicillin [From Augmentin] Allergy Rash Verified 04/24/19 16:00 clavulanic acid Allergy Rash Verified 04/24/19 16:00 [From Augmentin] Latex, Natural Rubber Allergy Rash Verified 04/24/19 16:00 Home Meds: Home Meds valACYclovir HCl [Valtrex] 500 mg PO DAILY 06/09/16 [History] SUMAtriptan Succinate [Imitrex] 100 mg PO ASDIRECTED PRN 04/16/18 [History] metFORMIN [Glucophage XR] 500 mg PO TID 04/16/18 [History] Past Medical History HEENT History: Reports: None Other HEENT History: wears glasses Cardiovascular History: Reports: None Respiratory History: Reports: None Gastrointestinal History: Reports: None Genitourinary History: Reports: None 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 History: Reports: Polycystic Ovaries, Musculoskeletal History: Reports: None Neurological History: Reports: Migraines Psychiatric History: Reports: None Endocrine/Metabolic History: Reports: None Hematologic History: Reports: None Immunologic History: Reports: None Oncologic (Cancer) History: Reports: None Dermatologic History: Reports: Other (See Below) Other Dermatologic History: Tumor removal to leg & jaw - Infectious Disease History Infectious Disease History: Reports: Chicken Pox, Other (See Below) Other Infectious Disease History: cold sores - Past Surgical History Head Surgeries/Procedures: Reports: None GI Surgical History: Reports: Other (See Below) Other GI Surgeries/Procedures: Gastric Bypass Oncologic Surgical History: Reports: None Social & Family History - Family History Family Medical History: Noncontributory - Tobacco Use Smoking Status *Q: Never Smoker - Caffeine Use Caffeine Use: Reports: Coffee - Recreational Drug Use Recreational Drug Use: No ED ROS GENERAL - Review of Systems Review Of Systems: ROS reveals no pertinent complaints other than HPI. - Physical Exam Exam: See Below (see dictation) Course - Vital Signs Last Recorded V/S: Last Vital Signs Temp 96.9 F 04/24/19 15:54 Pulse 78 04/24/19 15:54 Resp 18 04/24/19 15:54 BP 163/91 H 04/24/19 15:54 Pulse Ox 99 04/24/19 15:54 - Orders/Labs/Meds Orders: Active Orders 24 hr Category Date Time Status Sodium Chloride 0.9% [Normal Saline] 1,000 ml Med 04/24/19 16:10 Active IV STAT Sodium Chloride 0.9% [Saline Flush] Med 04/24/19 16:10 Active 10 ml FLUSH ASDIRECTED PRN Sodium Chloride 0.9% [Saline Flush] Med 04/24/19 16:10 Active 10 ml FLUSH ASDIRECTED PRN Sodium Chloride 0.9% [Saline Flush] Med 04/24/19 16:10 Active 2.5 ml FLUSH ASDIRECTED PRN Sodium Chloride 0.9% [Saline Flush] Med 04/24/19 16:10 Active 2.5 ml FLUSH ASDIRECTED PRN Saline Lock Insert [OM.PC] Stat Oth 04/24/19 16:10 Ordered Medication Orders Sodium Chloride (Normal Saline) 1,000 mls @ 999 mls/hr IV STAT ONE Stop: 04/24/19 17:10 Last Admin: 04/24/19 16:21 Dose: 999 mls/hr Sodium Chloride (Saline Flush) 10 ml FLUSH ASDIRECTED PRN PRN Reason: Keep Vein Open Sodium Chloride (Saline Flush) 2.5 ml FLUSH ASDIRECTED PRN PRN Reason: Keep Vein Open Sodium Chloride (Saline Flush) 10 ml FLUSH ASDIRECTED PRN PRN Reason: Keep Vein Open Sodium Chloride (Saline Flush) 2.5 ml FLUSH ASDIRECTED PRN PRN Reason: Keep Vein Open Meds: Medications Generic Name Dose Route Start Last Admin Trade Name Freq PRN Reason Stop Dose Admin Sodium Chloride 1,000 mls @ 999 mls/hr 04/24/19 16:10 04/24/19 16:21 Normal Saline IV 04/24/19 17:10 999 mls/hr STAT ONE Administration Sodium Chloride 10 ml 04/24/19 16:10 Saline Flush FLUSH ASDIRECTED PRN Keep Vein Open Sodium Chloride 2.5 ml 04/24/19 16:10 Saline Flush FLUSH ASDIRECTED PRN Keep Vein Open Sodium Chloride 10 ml 04/24/19 16:10 Saline Flush FLUSH ASDIRECTED PRN Keep Vein Open Sodium Chloride 2.5 ml 04/24/19 16:10 Saline Flush FLUSH ASDIRECTED PRN Keep Vein Open Discontinued Medications Generic Name Dose Route Start Last Admin Trade Name Joan PRN Reason Stop Dose Admin Diphenhydramine HCl 25 mg 04/24/19 16:10 04/24/19 16:22 Benadryl IVPUSH 04/24/19 16:11 25 mg ONETIME ONE Administration Ketorolac Tromethamine 30 mg 04/24/19 16:10 04/24/19 16:31 Toradol IVPUSH 04/24/19 16:11 30 mg ONETIME ONE Administration Metoclopramide HCl 10 mg 04/24/19 16:10 04/24/19 16:31 Reglan IVPUSH 04/24/19 16:11 10 mg ONETIME ONE Administration Ondansetron HCl 4 mg 04/24/19 16:10 04/24/19 16:31 Zofran IVPUSH 04/24/19 16:11 4 mg ONETIME ONE Administration Departure - Departure Time of Disposition: 17:06 Disposition: Home, Self-Care 01 Condition: Good Clinical Impression: Headache - Discharge Information Referrals: Nestor Amos MD [Primary Care Provider] - Forms: ED Department Discharge Additional Instructions: The following information is given to patients seen in the emergency department who are being discharged to home. This information is to outline your options for follow-up care. We provide all patients seen in our emergency department with a follow-up referral. The need for follow-up, as well as the timing and circumstances, are variable depending upon the specifics of your emergency department visit. If you don't have a primary care physician on staff, we will provide you with a referral. We always advise you to contact your personal physician following an emergency department visit to inform them of the circumstance of the visit and for follow-up with them and/or the need for any referrals to a consulting specialist. The emergency department will also refer you to a specialist when appropriate. This referral assures that you have the opportunity for follow-up care with a specialist. All of these measure are taken in an effort to provide you with optimal care, which includes your follow-up. Under all circumstances we always encourage you to contact your private physician who remains a resource for coordinating your care. When calling for follow-up care, please make the office aware that this follow-up is from your recent emergency room visit. If for any reason you are refused follow-up, please contact the [facility] at and asked to speak to the emergency department charge nurse. [facility] [address] [place] [address] [facility] [address] [place] [id number] Follow up with primary care provider Return to ED as needed as discussed - My Orders Last 24 Hours: My Active Orders 04/24/19 16:10 Sodium Chloride 0.9% [Normal Saline] 1,000 ml IV STAT Sodium Chloride 0.9% [Saline Flush] 10 ml FLUSH ASDIRECTED PRN Sodium Chloride 0.9% [Saline Flush] 10 ml FLUSH ASDIRECTED PRN Sodium Chloride 0.9% [Saline Flush] 2.5 ml FLUSH ASDIRECTED PRN Sodium Chloride 0.9% [Saline Flush] 2.5 ml FLUSH ASDIRECTED PRN Saline Lock Insert [OM.PC] Stat - Assessment/Plan Last 24 Hours: My Active Orders 04/24/19 16:10 Sodium Chloride 0.9% [Normal Saline] 1,000 ml IV STAT Sodium Chloride 0.9% [Saline Flush] 10 ml FLUSH ASDIRECTED PRN Sodium Chloride 0.9% [Saline Flush] 10 ml FLUSH ASDIRECTED PRN Sodium Chloride 0.9% [Saline Flush] 2.5 ml FLUSH ASDIRECTED PRN Sodium Chloride 0.9% [Saline Flush] 2.5 ml FLUSH ASDIRECTED PRN Saline Lock Insert [OM.PC] Stat
[2019-04-24 17:51] VITALS: BP 135/73; PULSE 74
== END 2019-04-24 17:34 | disposition home or self-care (01) ==
LOC: MW.ED 15:49
DX: R51 Headache (principal); Z88.1 Allergy status to other antibiotic agents; Z91.040 Latex allergy status; Z79.899 Other long term (current) drug therapy
CPT/HCPCS: 96361; 96374; 96375; 99283; J1200; J1885; J2405; J2765; J7040